=== PATIENT | male | born 1960 | race Caucasian/White ===

== ENCOUNTER 2021-04-18 17:49 | Emergency (ER) | payer SELFPAY ==
[~2021-04-18 17:49] MED LIST: ONDA4TAB6 PO
== END 2021-04-18 18:22 | disposition left against medical advice (07) ==
LOC: ER 17:49
DX: L55.9 Sunburn, unspecified (principal); Z53.21 Procedure and treatment not carried out due to patient leaving prior to being seen by health care provider

== ENCOUNTER 2022-02-22 17:38 | Emergency (ER) | payer SELFPAY ==
[~2022-02-22] VITALS: Ht 180.3 cm; Wt 81.8 kg
[2022-02-22 17:46] VITALS: BP 128/84
--- NOTE | 2022-02-22 18:36 | NUR ---
not in lobby
--- NOTE | 2022-02-22 18:55 | NUR ---
not in lobby 2nd call
--- NOTE | 2022-02-22 19:24 | NUR ---
not in lobby 3rd call
== END 2022-02-22 19:32 | disposition left against medical advice (07) ==
LOC: ER 17:38
DX: M79.671 Pain in right foot (principal); Z53.21 Procedure and treatment not carried out due to patient leaving prior to being seen by health care provider; W19.XXXA Unspecified fall, initial encounter; Y93.89 Activity, other specified; Y92.89 Other specified places as the place of occurrence of the external cause; Y99.8 Other external cause status

== ENCOUNTER 2022-05-30 13:44 | Emergency (ER) | payer SELFPAY ==
[~2022-05-30] VITALS: Ht 182.9 cm; Wt 81.8 kg
[2022-05-30 13:48] VITALS: BP 170/100
[2022-05-30 16:50] LABS: BASOPHILS % (AUTO) 0.6 % (0-1); EOSINOPHILS % (AUTO) 0.6 % (0-6); HEMATOCRIT 41.4 % (42.0-52.0); HEMOGLOBIN 13.9 g/dl (14.0-17.9); LYMPHOCYTES % (AUTO) 14.4 % (21-51); MEAN CORPUSCULAR HEMOGLOBIN 30.2 PG (27.0-31.0); MEAN CORPUSCULAR HGB CONC 33.7 g/dL (33.0-36.5); MEAN CORPUSCULAR VOLUME 89.9 FL (78-98); MEAN PLATELET VOLUME 8.4 FL (7.4-10.4); MONOCYTES # (AUTO) 0.6 X10'3 (0-0.9); NEUTROPHILS # (AUTO) 5.3 X10'3 (1.8-7.7); NEUTROPHILS % (AUTO) 76.4 % (42-75); PLATELET COUNT 204 X10'3 (140-440); RED CELL DISTRIBUTION WIDTH 14.2 % (11.5-14.5); WHITE BLOOD COUNT 6.9 X10'3 (4.5-11.0)
[2022-05-30] MEDS ORDERED: ibuprofen tablet 400 MG TABLET PO ONE (16:50)
[2022-05-30 16:57] LABS: CLARITY,URINE SLIGHTLY CLOUDY (Clear); COLOR,URINE YELLOW (Yellow); GLUCOSE, URINE NEGATIVE (Neg); KETONES,URINE NEGATIVE (Neg); LEUKOCYTE ESTERASE ,URINE NEGATIVE (Neg); NITRITES, URINE NEGATIVE (Neg); OCCULT BLOOD,URINE TRACE-INTACT (Neg); PH,URINE 5.5 (4.8-8.0); PROTEIN,URINE TRACE mg/dl (Neg); UA COLLECTION TYPE URINAL
[2022-05-30 17:06] LABS: MUCUS STRANDS MODERATE /LPF (Neg); SQUAMOUS EPITHELIAL CELL,UR FEW /LPF (FEW)
[2022-05-30 17:06] LABS: ALANINE AMINOTRANSFERASE 44 U/L (12-78); ALBUMIN 3.9 G/DL (3.4-5.0); ALBUMIN/GLOBULIN RATIO 0.9 (1.1-1.5); ALKALINE PHOSPHATASE 51 IU/L (46-116); ANION GAP 11 (8-16); ASPARTATE AMINO TRANSFERASE 37 U/L (10-37); BILIRUBIN,TOTAL 0.6 MG/DL (0.1-1.0); BLOOD UREA NITROGEN 13 MG/DL (7-18); BUN/CREATININE RATIO 15.1 (5.4-32.0); CALCIUM 8.4 MG/DL (8.5-10.1); CHLORIDE 105 MMOL/L (99-107); CREATININE 0.86 MG/DL (0.60-1.10); GLUCOSE 92 MG/DL (70-104); POTASSIUM 3.8 MMOL/L (3.5-5.1); SODIUM 141 MMOL/L (135-145); TOTAL CARBON DIOXIDE 24.8 MMOL/L (24-32); TOTAL PROTEIN 8.2 G/DL (6.4-8.2); eGFR > 90 ML/MIN
[2022-05-30 17:07] LABS: BACTERIA,URINE FEW /HPF (Neg); RBC,URINE 0-2 /HPF (0-2); URINE AMPHETAMINE SCREEN POSITIVE (Neg); URINE BARBITUATE SCREEN NEGATIVE (Neg); URINE BENZODIAZEPINES SCREEN NEGATIVE (Neg); URINE CANNABINOID SCREEN POSITIVE (Neg); URINE COCAINE SCREEN NEGATIVE (Neg); URINE METHADONE SCREEN NEGATIVE (Neg); URINE PHENCYCLIDINE SCREEN NEGATIVE (Neg); WBC,URINE 0-4 /HPF (0-4)
[2022-05-30 17:10] LABS: URINE OPIATE SCREEN NEGATIVE (Neg)
== END 2022-05-30 17:27 | disposition home or self-care (01) ==
LOC: ER 13:45
DX: S82.832A Other fracture of upper and lower end of left fibula, initial encounter for closed fracture (principal); S92.354K Nondisplaced fracture of fifth metatarsal bone, right foot, subsequent encounter for fracture with nonunion; T65.894A Toxic effect of other specified substances, undetermined, initial encounter; S00.81XA Abrasion of other part of head, initial encounter; R78.0 Finding of alcohol in blood; F31.9 Bipolar disorder, unspecified; G89.29 Other chronic pain; Z86.19 Personal history of other infectious and parasitic diseases; Z98.890 Other specified postprocedural states; Z79.899 Other long term (current) drug therapy; X58.XXXA Exposure to other specified factors, initial encounter; Y93.89 Activity, other specified; Y92.89 Other specified places as the place of occurrence of the external cause; Y99.8 Other external cause status
CPT/HCPCS: 29505; 36415; 73590; 73630; 80053; 80305; 80320; 81001; 82948; 85025; 99284; C1758; A6449